=== PATIENT | male | born 1940 | race Caucasian/White ===

== ENCOUNTER 2021-05-21 08:47 | Emergency (ER) | payer MEDICARE ==
[~2021-05-21] VITALS: Ht 185.4 cm; Wt 95.3 kg
[~2021-05-21 08:47] MED LIST: ELIQUIS5 MG PO; HYDROCORTISONE10 MG PO; LEVAQUIN500 MG PO; LOPRESSOR 25 MG25 MG PO; LYRICA25 MG PO; NORVASC 5 MG TAB5 MG PO; TYLENOL W/CODEIN1 E1 PO
[2021-05-21 11:29] LABS: RED BLOOD COUNT 5.6 M/UL (4.20-5.50); WHITE BLOOD COUNT 3.1 K/UL (4.5-11.0)
[2021-05-21 11:37] LABS: BUN/CREATININE RATIO 13 (0-10)
[2021-05-22] MEDS ORDERED: LEVOTHYROXINE100 MCG PO (08:09)
[2021-05-22] MEDS ORDERED: NEXIUM40 MG PO (08:11)
[2021-05-22] MEDS ORDERED: DEPO-TESTO200 MG/1 M IM (08:12)
[2021-05-22] MEDS ORDERED: CORTEF5 MG PO ×2 (11:12→11:13)
[2021-05-22] MEDS ORDERED: SOTALOL80 MG PO (11:14)
[2021-05-22] MEDS ORDERED: COZAAR 50MG TAB50 MG PO (11:16)
[2021-05-22] MEDS ORDERED: ALEVE220 MG PO (11:18)
[2021-05-22] MEDS ORDERED: FIBER SELECT G1 EACH PO (11:19)
== END 2021-05-21 15:55 | disposition home or self-care (01) ==
LOC: ER1 08:47
PROVIDERS: Physician Assistant
DX: Z53.8 Procedure and treatment not carried out for other reasons (principal)
CPT/HCPCS: 36600; 70450; 71045; 80053; 82550; 82553; 82803; 83874; 84484; 85025; J7030

== ENCOUNTER 2021-05-21 21:29 | Inpatient (IN) | payer MEDICARE ==
[~2021-05-21] VITALS: Ht 182.9 cm; Wt 94.8 kg
[2021-05-21 22:16] LABS: HEMOGLOBIN 11.9 gm/dl (14.0-17.5); RED BLOOD COUNT 5.58 M/UL (4.20-5.50)
[2021-05-21 22:17] LABS: WHITE BLOOD COUNT 4.5 K/UL (4.5-11.0)
[2021-05-21 22:50] LABS: BUN/CREATININE RATIO 13 (0-10)
[2021-05-22 07:20] LABS: HEMOGLOBIN 11.6 gm/dl (14.0-17.5); RED BLOOD COUNT 5.48 M/UL (4.20-5.50); WHITE BLOOD COUNT 5.6 K/UL (4.5-11.0)
[2021-05-22] MEDS ORDERED: LEVOTHYROXINE100 MCG PO (08:09)
[2021-05-22] MEDS ORDERED: NEXIUM40 MG PO (08:11)
[2021-05-22] MEDS ORDERED: DEPO-TESTO200 MG/1 M IM (08:12)
[2021-05-22] MEDS ORDERED: CORTEF5 MG PO ×2 (11:12→11:13)
[2021-05-22] MEDS ORDERED: SOTALOL80 MG PO (11:14)
[2021-05-22] MEDS ORDERED: COZAAR 50MG TAB50 MG PO (11:16)
[2021-05-22] MEDS ORDERED: ALEVE220 MG PO (11:18)
[2021-05-22] MEDS ORDERED: FIBER SELECT G1 EACH PO (11:19)
[2021-05-23 02:50] LABS: HEMOGLOBIN 11.8 gm/dl (14.0-17.5); RED BLOOD COUNT 5.63 M/UL (4.20-5.50); WHITE BLOOD COUNT 4.3 K/UL (4.5-11.0)
[2021-05-24 04:37] LABS: HEMOGLOBIN 11.1 gm/dl (14.0-17.5); RED BLOOD COUNT 5.3 M/UL (4.20-5.50)
[2021-05-24 04:40] LABS: WHITE BLOOD COUNT 6.6 K/UL (4.5-11.0)
[2021-05-24 05:07] LABS: BUN/CREATININE RATIO 19 (0-10)
[2021-05-25 06:24] LABS: HEMOGLOBIN 11.6 gm/dl (14.0-17.5); RED BLOOD COUNT 5.5 M/UL (4.20-5.50); WHITE BLOOD COUNT 8.2 K/UL (4.5-11.0)
[2021-05-25 07:03] LABS: BUN/CREATININE RATIO 23 (0-10)
[2021-05-25 13:14] LABS: ORGANISM ID Not indicated. (.); SPECIMEN SOURCE Urine (.); STREPTOCOCCUS PNEUMONIAE AG Negative (Negative)
[2021-05-26 04:33] LABS: RED BLOOD COUNT 5.65 M/UL (4.20-5.50); WHITE BLOOD COUNT 8.4 K/UL (4.5-11.0)
[2021-05-26 05:01] LABS: BUN/CREATININE RATIO 24 (0-10)
[2021-05-27 05:12] LABS: HEMOGLOBIN 12.3 gm/dl (14.0-17.5); RED BLOOD COUNT 5.77 M/UL (4.20-5.50); WHITE BLOOD COUNT 8.8 K/UL (4.5-11.0)
[2021-05-27 05:38] LABS: BUN/CREATININE RATIO 23 (0-10)
[2021-05-28 06:39] LABS: HEMOGLOBIN 12.9 gm/dl (14.0-17.5); RED BLOOD COUNT 6.07 M/UL (4.20-5.50); WHITE BLOOD COUNT 10.3 K/UL (4.5-11.0)
[2021-05-28 07:16] LABS: BUN/CREATININE RATIO 21 (0-10)
[2021-05-29 08:01] LABS: HEMOGLOBIN 13.4 gm/dl (14.0-17.5); RED BLOOD COUNT 6.32 M/UL (4.20-5.50); WHITE BLOOD COUNT 11.9 K/UL (4.5-11.0)
[2021-05-29 08:26] LABS: BUN/CREATININE RATIO 20 (0-10)
[2021-05-30 07:16] LABS: HEMOGLOBIN 13.6 gm/dl (14.0-17.5); RED BLOOD COUNT 6.34 M/UL (4.20-5.50); WHITE BLOOD COUNT 12.7 K/UL (4.5-11.0)
[2021-05-30 07:31] LABS: BUN/CREATININE RATIO 23 (0-10)
[2021-05-30] MEDS ORDERED: VENTOLIN HFA 66.7 GM INH (11:47)
--- NOTE | 2021-05-30 18:09 | NUR ---
REPORT CALLED TO ROSLYN TAMAYO AT [facility].
== END 2021-05-30 17:18 | disposition home health service (06) | DRG 177 ==
LOC: ER1 21:29 → MED SURG 4 23:34 → CDU 23:34 → MED SURG 4 05-22 19:33
PROVIDERS: Internal Medicine; Physician Assistant; ADMIT Internal Medicine
PROC: 3E0333Z Introduction of Anti-inflammatory into Peripheral Vein, Percutaneous Approach (ICD-10-PCS; principal; 2021-05-21)
PROC: XW033E5 Introduction of Remdesivir Anti-infective into Peripheral Vein, Percutaneous Approach, New Technology Group 5 (ICD-10-PCS; 2021-05-22)
PROC: 8E0ZXY6 Isolation (ICD-10-PCS; 2021-05-22)
DX: U07.1 COVID-19 (principal); J96.01 Acute respiratory failure with hypoxia; G93.41 Metabolic encephalopathy; J12.82 Pneumonia due to coronavirus disease 2019; J15.9 Unspecified bacterial pneumonia; N17.9 Acute kidney failure, unspecified; E87.1 Hypo-osmolality and hyponatremia; D61.818 Other pancytopenia; E27.40 Unspecified adrenocortical insufficiency; K21.9 Gastro-esophageal reflux disease without esophagitis; D75.89 Other specified diseases of blood and blood-forming organs; E03.9 Hypothyroidism, unspecified; E83.39 Other disorders of phosphorus metabolism; I12.9 Hypertensive chronic kidney disease with stage 1 through stage 4 chronic kidney disease, or unspecified chronic kidney disease; I48.91 Unspecified atrial fibrillation; Z79.01 Long term (current) use of anticoagulants; Z95.0 Presence of cardiac pacemaker
CPT/HCPCS: 36415; 36600; 70450; 71045; 71250; 80048; 80053; 81001; 82550; 82553; 82728; 82803; 83605; 83735; 83874; 83880; 84100; 84439; 84443; 84484; 85025; 85027; 85652; 86140; 87040; 87086; 87205; 87278; 87899; 93005; 94640; 94760; 97116-GP-CQ; 97161; 97166; 97530-GP-CQ; 99284; 99285; G0378; J0456; J0696; J1100; J2543; J7030; M0243; Q0177

== ENCOUNTER → 2021-10-30 | Outpatient (CLI) | payer MEDICARE ==
[~2021-10-30] MED LIST changes: +ALEVE220 MG PO; +CORTEF5 MG PO; +COZAAR 50MG TAB50 MG PO; +DEPO-TESTO200 MG/1 M IM; +FIBER SELECT G1 EACH PO; +LEVOTHYROXINE100 MCG PO; +NEXIUM40 MG PO; +SOTALOL80 MG PO; +VENTOLIN HFA 66.7 GM INH
== END ==
LOC: HEART 5 14:50
DX: I25.10 Atherosclerotic heart disease of native coronary artery without angina pectoris (principal); I47.2 Ventricular tachycardia; I48.0 Paroxysmal atrial fibrillation; I08.1 Rheumatic disorders of both mitral and tricuspid valves
CPT/HCPCS: 93306

== ENCOUNTER 2022-06-20 11:20 | Emergency (ER) | payer MEDICARE ==
[2022-06-20 12:16] LABS: HEMOGLOBIN 13.8 gm/dl (14.0-17.5); RED BLOOD COUNT 6.09 M/UL (4.20-5.50)
== END 2022-06-20 16:53 | disposition home or self-care (01) ==
LOC: ER1 11:20
PROVIDERS: Physician Assistant
DX: R00.2 Palpitations (principal); I48.91 Unspecified atrial fibrillation; E78.5 Hyperlipidemia, unspecified; I10 Essential (primary) hypertension; Z95.0 Presence of cardiac pacemaker
CPT/HCPCS: 71045; 80053; 82550; 82553; 84484; 85025; 93005; 93242; 99285